=== PATIENT | female | born 1945 | race Caucasian/White ===

== ENCOUNTER 2021-09-20 10:02 | Emergency (ER) | payer MEDICARE, SELFPAY ==
--- NOTE | 2021-09-20 10:07 | ED.DIZZY ---
HPI - Dizziness General Chief Complaint: Dizziness Stated Complaint: dizzy/blood pressure problems Time Seen by Provider: 09/20/21 10:07 Source: patient and RN notes reviewed History of Present Illness HPI Narrative: Patient is a 75-year-old female who presents the urgent care requesting a blood pressure check. Patient states that she was placed on 100 mg losartan on Saturday by her PCP. Patient states that that was double the dose that she was used to. Patient states that she takes it prior to bedtime and has woke up the last couple mornings with dizziness. Patient states the dizziness resolves fairly quickly however she is concerned that her blood pressure has been too high . Patient currently denies of any headache, dizziness, lightheadedness and did drive herself to the facility. Patient states that she just wants her blood pressure checked to make sure her machine is not reading a wrong reading . No other acute complaints. No acute distress noted. Patient aware of the plan of care. Some parts of this dictation were generated by voice recognition software and may contain typographical and/or grammatical inaccuracies. Related Data Home Medications Medication Instructions Recorded Confirmed amlodipine 09/20/21 glipizide 09/20/21 losartan 09/20/21 metformin 09/20/21 metoprolol succinate 09/20/21 simvastatin 09/20/21 Allergies Allergy/AdvReac Type Severity Reaction Status Date / Time clindamycin Allergy Unknown Verified 09/20/21 10:14 Penicillins Allergy Unknown Verified 09/20/21 10:14 Sulfa (Sulfonamide Allergy Unknown Verified 09/20/21 10:14 Antibiotics) Review of Systems Review of Systems: CONSTITUTIONAL: Denies fever, chills, or sweats. EYES: Denies visual changes, redness, or discharge. ENT: Denies rhinorrhea, congestion, sore throat, or otalgia. CARDIOVASCULAR: Denies chest pain, palpitations, or edema. RESPIRATORY: Denies cough or dyspnea. GASTROINTESTINAL: Denies abdominal pain, nausea, vomiting, or diarrhea. GENITOURINARY: Denies dysuria or hematuria. SKIN: Denies rash or itching. MUSCULOSKELETAL: Denies back pain, joint pain, or myalgia. NEUROLOGIC: Denies headache, numbness, or weakness. All other systems reviewed are negative, except as documented in HPI. PMFSH Comments At the time of my signature, I reviewed and agree with the nursing past medical, surgical, social, and family history. There is no relevant family history pertinent to the patient complaint. Exam Narrative: GENERAL: This is a well-nourished, well-developed patient, in no apparent distress. HEAD: normocephalic, atraumatic. EYES: PERRL. Sclera clear/white. Vision is grossly intact. EARS: External ears normal NOSE: External nose normal with no obvious nasal discharge, nares without redness, no rhinorrhea. THROAT: Mucous membranes moist NECK: Neck supple CARDIOVASCULAR: Regular rate and rhythm without murmurs, gallops, or rubs. RESPIRATORY: Clear to auscultation. Breath sounds equal bilaterally. No wheezes, rales, or rhonchi. SKIN: warm, intact with no suspicious lesions or rash, good texture and turgor. NEURO: awake, alert, and oriented to person, place and time. There were no obvious focal neurologic abnormalities. EXTREMITIES: No clubbing, cyanosis, or edema. Course Course Level of Care: Express Care Visit Vital Signs Vital signs: Vital Signs Temperature 97.8 F 09/20/21 10:10 Pulse Rate 69 09/20/21 10:10 Respiratory Rate 16 09/20/21 10:10 Blood Pressure 144/80 H 09/20/21 10:10 Pulse Oximetry 99 09/20/21 10:10 Temperature 97.8 F 09/20/21 10:15 Pulse Rate 69 09/20/21 10:15 Respiratory Rate 16 09/20/21 10:15 Blood Pressure 144/80 H 09/20/21 10:15 Pulse Oximetry 99 09/20/21 10:15 Reviewed-patient is informed that they may have pre-hypertension or hypertension based on a blood pressure reading in the department. I recommend the patient call the primary care provider listed o
[2021-09-20 10:10] VITALS: BP 144/80; PULSE 69; RESP 16; TEMP 36.6; O2SAT 99
[2021-09-20 10:15] VITALS: BP 144/80; PULSE 69; RESP 16; TEMP 36.6; O2SAT 99
== END 2021-09-20 10:22 | disposition home or self-care (01) ==
PROVIDERS: Emergency Provider Nurse Practitioner Family
DX: Z04.89 Encounter for examination and observation for other specified reasons (principal); I10 Essential (primary) hypertension; E78.00 Pure hypercholesterolemia, unspecified
CPT/HCPCS: 99211; G0463